=== PATIENT | female | born 2000 | race Caucasian/White ===

== ENCOUNTER 2022-05-05 12:33 | Emergency (ER) | payer OTHER ==
[~2022-05-05] VITALS: Ht 162.6 cm; Wt 63.5 kg
[2022-05-05] MEDS ORDERED: SODIUM CHLORIDE 0.9% 1000ML 1,000 ML IV STA (13:27)
[2022-05-05] MEDS ORDERED: KETOROLAC TROMETHAMINE 30 MG/ML VIAL IV NR (13:30)
[2022-05-05 13:47] LABS: BASOPHILS # (AUTO) 0.1 (0.0-0.1); BASOPHILS % 0.4 % (0.0-1.0); EOSINOPHILS % 0.2 % (0.0-6.0); HEMATOCRIT 36.9 % (34.2-44.1); HEMOGLOBIN 11.3 g/dL (12.0-16.0); LYMPHOCYTES % 16.4 % (18.0-39.1); MEAN CORPUSCULAR HEMOGLOBIN 24.7 pg (28-32); MEAN CORPUSCULAR HGB CONC 30.6 g/dL (31-35); MEAN CORPUSCULAR VOLUME 80.6 fL (81-99); MONOCYTES # (AUTO) 0.6 (0.2-0.8); MONOCYTES % 5.3 % (4.4-11.3); NEUTROPHILS # (AUTO) 9.3 (2.1-6.9); NEUTROPHILS % 77.2 % (38.7-80.0); PLATELET COUNT 377 x10e3/uL (140-360); RED BLOOD COUNT 4.58 x10e6/uL (3.6-5.1); RED CELL DISTRIBUTION WIDTH 14.9 % (11.7-14.4)
[2022-05-05 14:04] LABS: INR 0.94; PROTHROMBIN TIME 13.4 seconds (11.9-14.5)
[2022-05-05 14:05] LABS: PARTIAL THROMBOPLASTIN TIME 29.7 seconds (23.8-35.5)
[2022-05-05 14:16] LABS: ALBUMIN 4.1 g/dL (3.5-5.0); ALBUMIN/GLOBULIN RATIO 1.1 (0.8-2.0); ANION GAP 13.8 mmol/L (8-16); CALCIUM 9.2 mg/dL (8.4-10.2); CREATININE, SERUM 0.77 mg/dL (0.57-1.11); POTASSIUM 3.8 mmol/L (3.5-5.1)
== END 2022-05-05 15:23 | disposition home or self-care (01) ==
LOC: ER 12:55
DX: G43.909 Migraine, unspecified, not intractable, without status migrainosus (principal)
CPT/HCPCS: 36415; 70450; 80053; 81025; 85025; 85610; 85730; 99283; J1885; J7030